=== PATIENT | female | born 1950 | race Caucasian/White ===

== ENCOUNTER 2023-11-06 21:06 | Inpatient (IN) ==
[2023-11-06 23:02] LABS: Hematocrit 23.9 % (35-45); Hemoglobin 7.5 g/dL (11.5-14.3); Mean Corpuscular Hemoglobin 27.4 pg (27-33); Mean Corpuscular Hgb Conc 31.3 g/dL (31-36); Mean Corpuscular Volume 87.6 fL (80-97); Mean Platelet Volume 6.4 fL (7.5-11.2); Platelet Count 393 10^3/uL (150-450); Red Blood Count 2.73 10^6/uL (3.63-4.92); Red Cell Distribution Width 18.8 % (12-17); White Blood Count 29.1 10^3/uL (3.8-11.8)
[2023-11-06] MEDS: NS 0.45% 1000 ml BAG 1,000 ML IV ONE (23:21)
[2023-11-06 23:37] LABS: Albumin 2.3 g/dL (3.2-5.2); Calcium 9.1 mg/dL (8.6-10.3); Creatinine, Serum 3.48 mg/dL (0.51-0.95); Globulin 2.2 g/dL (2-4); Potassium 4.1 mmol/L (3.5-5.0); Total Bilirubin 0.4 mg/dL (0.2-1.0); Total Protein 4.5 g/dL (6.4-8.9); eGFR CKD-EPI 13.4 (>60)
[2023-11-06] MEDS: NS 0.9% 1000 ml BAG 1,000 ML IV SCH (23:47)
[2023-11-07] MEDS ORDERED: Albuterol/Ipratropium NEB.SOL (2.5/0.5 MG) 3 ML NEB.SOLN INH PRN (00:05)
[2023-11-07] MEDS ORDERED: Albuterol 2.5mg/3 ml (0.083%) NEB.SOLN INH PRN (00:05)
[2023-11-07] MEDS ORDERED: Vancomycin 1,000 MG in NS 0.9% 250 ml 250 ML IVPB ONE (00:14)
[2023-11-07 00:38] LABS: ABS Lymphocytes 0.7 10^3/uL (1.0-4.8); ABS Monocytes 0.8 10^3/uL (0.0-0.9); ABS Neutrophils 27.5 10^3/uL (1.5-7.6); ABS Nucleated RBC 0.01 10^3/ul; Anisocytosis 1+; Burr Cells 1+; Eosinophil % 0.1 %; Lymphocyte % 2.4 %; Microcytosis 1+; Polychromasia 1+
[2023-11-07] MEDS ORDERED: Vancomycin per Pharmacy 1 EA NOTE FOLLOW UP SCH (01:00)
[2023-11-07] MEDS: cefTRIAXone 1 gm/50 mL D5W 1 GM/50 ML BAG IV SCH (01:41)
[2023-11-07] MEDS: Hydrocortisone INJ 100 MG/2ML 2 ML VIAL IV SCH (01:59)
[2023-11-07] MEDS: Vancomycin 2,000 MG in NS 0.9% 500 ml BAG 500 ML IVPB ONE (02:04)
[2023-11-07 05:46] LABS: Hematocrit 21.9 % (35-45); Hemoglobin 6.7 g/dL (11.5-14.3); Mean Corpuscular Hemoglobin 26.8 pg (27-33); Mean Corpuscular Hgb Conc 30.6 g/dL (31-36); Mean Corpuscular Volume 87.6 fL (80-97); Mean Platelet Volume 6.4 fL (7.5-11.2); Platelet Count 369 10^3/uL (150-450); White Blood Count 22.8 10^3/uL (3.8-11.8)
[2023-11-07 06:17] LABS: Calcium 8.5 mg/dL (8.6-10.3); Creatinine, Serum 3.36 mg/dL (0.51-0.95); Potassium 4.1 mmol/L (3.5-5.0)
[2023-11-07 06:32] LABS: ABS Lymphocytes 0.4 10^3/uL (1.0-4.8); ABS Monocytes 0.6 10^3/uL (0.0-0.9); ABS Neutrophils 21.7 10^3/uL (1.5-7.6); Lymphocyte % 1.9 %
[2023-11-07] MEDS ORDERED: Mometasone/Formoter 200/5 MDI INH SCH (07:00)
[2023-11-07] MEDS ORDERED: Isosorbide Mononit ER 30mg TAB PO SCH (09:00)
[2023-11-07] MEDS: NS 0.9% 1000 ml BAG 1,000 ML IV SCH (09:04)
[2023-11-07] MEDS: Senna TAB 8.6 mg TAB PO PRN (09:04)
[2023-11-07] MEDS: Heparin 5000 UNITS/ML 1 mL VIAL SUBCUT SCH (09:04)
[2023-11-07] MEDS ORDERED: Sulfur Hexaflouride MICROSPHR 25 MG VIAL ONE (09:20)
[2023-11-07] MEDS: Sulfur Hexaflouride MICROSPHR 25 MG VIAL IV ONE (09:24)
[2023-11-07] MEDS: Albuterol/Ipratropium NEB.SOL (2.5/0.5 MG) 3 ML NEB.SOLN INH SCH (09:26)
[2023-11-07] MEDS: Ondansetron 4 mg VIAL 2 MG/ML 2 ml VIAL IV PRN (20:58)
[2023-11-07] MEDS: Linezolid 600 MG IVPREMIX(*) 600 MG/300 ML BAG IVPB SCH (21:01)
[2023-11-07] MEDS: Fluticasone NASAL SPRAY 50MCG 16 gm SPRAY BTL BOTH NARES SCH (21:16)
[2023-11-07] MEDS: Furosemide 40 mg/4 ml IV VIAL IV SLOW PU ONE (22:32)
[2023-11-08] MEDS: Al Hydrox/Mg Hydrox/Simet LIQ 30 ML UDC PO PRN (00:11)
[2023-11-08 04:02] LABS: Hematocrit 25.2 % (35-45); Hemoglobin 7.8 g/dL (11.5-14.3); Mean Corpuscular Hemoglobin 26.8 pg (27-33); Mean Corpuscular Hgb Conc 31.1 g/dL (31-36); Mean Corpuscular Volume 86.4 fL (80-97); Mean Platelet Volume 6.4 fL (7.5-11.2); Platelet Count 429 10^3/uL (150-450); Red Blood Count 2.92 10^6/uL (3.63-4.92); Red Cell Distribution Width 18.4 % (12-17); White Blood Count 18.4 10^3/uL (3.8-11.8)
[2023-11-08 04:55] LABS: Anion Gap 11 mmol/L (2-16); Blood Urea Nitrogen 41 mg/dL (6-24); CO2 Carbon Dioxide 25 mmol/L (22-32); Calcium 9.2 mg/dL (8.6-10.3); Chloride 106 mmol/L (101-111); Creatinine, Serum 2.55 mg/dL (0.51-0.95); Glucose 108 mg/dL (70-100); Magnesium 2.3 mg/dL (1.9-2.7); Potassium 3.7 mmol/L (3.5-5.0); Sodium 142 mmol/L (135-145); eGFR CKD-EPI 19.5 (>60)
[2023-11-08] MEDS: ACLIDINIUM MDI INH SCH (06:10)
[2023-11-08 07:04] LABS: ABS Basophils 0.2 10^3/uL (0.0-0.1); ABS Lymphocytes 0.5 10^3/uL (1.0-4.8); ABS Monocytes 0.6 10^3/uL (0.0-0.9); ABS Neutrophils 17.1 10^3/uL (1.5-7.6); ABS Nucleated RBC 0.04 10^3/ul; Anisocytosis 1+; Eosinophil % 0.1 %; Lymphocyte % 2.6 %; Nucleated Red Blood Cells % 0.2 %/100WBC (0.0-0.8)
[2023-11-08] MEDS: ROFLUMILAST 500 MCG PO SCH (08:40)
[2023-11-08] MEDS: Polyethylene Glycol 3350 17 GM PACKET PO PRN (08:41)
[2023-11-08] MEDS: Vancomycin Random Level NOTE FOLLOW UP ONE (08:42)
[2023-11-08] MEDS: Albuterol 2.5mg/3 ml (0.083%) NEB.SOLN INH SCH ×2 (09:29→12:50)
[2023-11-08] MEDS ORDERED: Vancomycin Random Level NOTE FOLLOW UP ONE (11:30)
[2023-11-08] MEDS: PTO:Fluticasone/Vilanterol MDI(NF) 200/25 MDI INH SCH (12:24)
[2023-11-08] MEDS: Vancomycin 1,750 MG in NS 0.9% 500 ml BAG 500 ML IVPB ONE (12:30)
[2023-11-08] MEDS: Levalbuterol 1.25MG/0.5ML NEB.SOL INH SCH (12:30)
[2023-11-08] MEDS: Levalbuterol 1.25MG/0.5ML NEB.SOL ONE (12:52)
[2023-11-08] MEDS: Pantoprazole VIAL 40 MG VIAL IV SCH (16:55)
[2023-11-08 17:10] LABS: Hematocrit 26.3 % (35-45); Hemoglobin 8.3 g/dL (11.5-14.3); Mean Corpuscular Hemoglobin 27.1 pg (27-33); Mean Corpuscular Hgb Conc 31.4 g/dL (31-36); Mean Corpuscular Volume 86.2 fL (80-97); Mean Platelet Volume 6.4 fL (7.5-11.2); Platelet Count 438 10^3/uL (150-450); Red Blood Count 3.05 10^6/uL (3.63-4.92); Red Cell Distribution Width 18.7 % (12-17); White Blood Count 15.4 10^3/uL (3.8-11.8)
[2023-11-08] MEDS: Acetaminophen IV 1 GM/100ML 1,000 MG/100 ML BAG IV PRN (17:38)
[2023-11-08] MEDS: Lactated Ringers 1000 ml BAG 1,000 ML IV SCH (17:39)
[2023-11-08 18:12] LABS: ABS Lymphocytes 0.5 10^3/uL (1.0-4.8); ABS Monocytes 0.7 10^3/uL (0.0-0.9); ABS Neutrophils 14.2 10^3/uL (1.5-7.6); ABS Nucleated RBC 0.02 10^3/ul; Eosinophil % 0.1 %; Nucleated Red Blood Cells % 0.1 %/100WBC (0.0-0.8)
[2023-11-08] MEDS: Lidocaine PATCH 5% PATCH TRANSDERM SCH (18:24)
[2023-11-08 18:38] LABS: Iron < 20 ug/dL (50-212); Transferrin 115 mg/dL (203-362)
[2023-11-08] MEDS: Morphine 2 MG/ML SYRINGE IV ONE ×2 (20:42→23:50)
[2023-11-08] MEDS: Ondansetron 4 mg VIAL 2 MG/ML 2 ml VIAL IV ONE (20:43)
[2023-11-08] MEDS: Metoprolol Tartrate 5 mg VIAL 5 ml VIAL (1 mg/ml) IV ONE ×2 (20:58→21:25)
[2023-11-09 06:13] LABS: Hematocrit 25.8 % (35-45); Hemoglobin 8.3 g/dL (11.5-14.3); Mean Corpuscular Hemoglobin 27.8 pg (27-33); Mean Corpuscular Hgb Conc 32.3 g/dL (31-36); Mean Corpuscular Volume 86.2 fL (80-97); Mean Platelet Volume 6.6 fL (7.5-11.2); Platelet Count 412 10^3/uL (150-450); Red Cell Distribution Width 18.2 % (12-17); White Blood Count 14.1 10^3/uL (3.8-11.8)
[2023-11-09 06:31] LABS: Creatinine, Serum 1.69 mg/dL (0.51-0.95); Magnesium 2.2 mg/dL (1.9-2.7); Potassium 3.6 mmol/L (3.5-5.0); eGFR CKD-EPI 31.9 (>60)
[2023-11-09 07:11] LABS: ABS Eosinophils 0.1 10^3/uL (0.0-0.5); ABS Lymphocytes 0.6 10^3/uL (1.0-4.8); ABS Monocytes 0.7 10^3/uL (0.0-0.9); ABS Neutrophils 12.7 10^3/uL (1.5-7.6); ABS Nucleated RBC 0.02 10^3/ul; Eosinophil % 0.4 %; Lymphocyte % 4.3 %; Nucleated Red Blood Cells % 0.1 %/100WBC (0.0-0.8)
[2023-11-09] MEDS: Glycerin ADULT 2.4 gm SUPP PR ONE (11:14)
[2023-11-09] MEDS: Metoclopramide 5 MG/ML VIAL (10 mg) IV SLOW PU ONE (11:14)
[2023-11-09] MEDS: Metoclopramide 5 MG/ML VIAL (10 mg) IV SLOW PU PRN (17:20)
[2023-11-09] MEDS: Morphine 2 MG/ML SYRINGE IV PRN (19:28)
[2023-11-09] MEDS ORDERED: Levalbuterol 0.63MG/3ML NEB UNIT OF USE INH PRN (21:44)
[2023-11-09 21:49] LABS: Hematocrit 28.9 % (35-45); Hemoglobin 8.8 g/dL (11.5-14.3); Mean Corpuscular Hemoglobin 26.6 pg (27-33); Mean Corpuscular Hgb Conc 30.4 g/dL (31-36); Mean Corpuscular Volume 87.5 fL (80-97); Mean Platelet Volume 6.6 fL (7.5-11.2); Platelet Count 549 10^3/uL (150-450); Red Blood Count 3.31 10^6/uL (3.63-4.92); Red Cell Distribution Width 18.9 % (12-17); White Blood Count 20.4 10^3/uL (3.8-11.8)
[2023-11-09] MEDS: Levalbuterol 1.25MG/0.5ML NEB.SOL ONE (21:52)
[2023-11-09] MEDS: Metoprolol Tartrate 5 mg VIAL 5 ml VIAL (1 mg/ml) IV PRN (22:05)
[2023-11-09 22:12] LABS: PO2 Arterial 125 mmHg (80-100)
[2023-11-09 22:14] LABS: PCO2 Arterial 95 mmHg (35-45)
[2023-11-09 22:20] LABS: ABS Basophils 0.1 10^3/uL (0.0-0.1); ABS Eosinophils 0.1 10^3/uL (0.0-0.5); ABS Lymphocytes 1.8 10^3/uL (1.0-4.8); ABS Monocytes 1.1 10^3/uL (0.0-0.9); ABS Neutrophils 17.4 10^3/uL (1.5-7.6); ABS Nucleated RBC 0.04 10^3/ul; Anisocytosis 1+; Basophilic Stippling 1+; Eosinophil % 0.4 %; Lymphocyte % 8.8 %; Nucleated Red Blood Cells % 0.2 %/100WBC (0.0-0.8); Polychromasia 1+
[2023-11-09 22:39] LABS: Albumin 2.5 g/dL (3.2-5.2); Albumin/Globulin Ratio 0.9 (1-3); Calcium 9.4 mg/dL (8.6-10.3); Creatinine, Serum 1.51 mg/dL (0.51-0.95); Globulin 2.7 g/dL (2-4); Potassium 4.4 mmol/L (3.5-5.0); Total Bilirubin 0.5 mg/dL (0.2-1.0); Total Protein 5.2 g/dL (6.4-8.9); eGFR CKD-EPI 36.5 (>60)
[2023-11-09] MEDS: Propofol 10 mg/ml 100 ML BTL 1,000 MG/100 ML BTL IV SCH (22:44)
[2023-11-09] MEDS: Norepinephrine 4 MG/250mL D5W 4,000 MCG/250 ML BAG IV SCH (23:10)
[2023-11-09] MEDS: Norepinephrine 4 MG/250mL D5W 4,000 MCG/250 ML BAG IV ONE (23:11)
[2023-11-09] MEDS: Lactated Ringers 1000 ml BAG 1,000 ML IV SCH (23:24)
[2023-11-09] MEDS: Bumetanide IV 0.25 MG/ML 4 ml VIAL (1 mg) IV SLOW PU ONE (23:24)
[2023-11-09 23:31] LABS: PCO2 Arterial 41 mmHg (35-45); PO2 Arterial 90 mmHg (80-100)
[2023-11-10] MEDS: methylPREDNISolone SOD SUCC 40 mg/ml 1 ml VIAL IV SCH (02:17)
[2023-11-10] MEDS: Chlorhexidine MOUTHWASH 0.12% 15 ML UDC TOPICAL SCH (02:17)
[2023-11-10] MEDS: Norepinephrine 4 MG/250mL NS 4,000 MCG/250 ML BAG IV SCH (02:40)
[2023-11-10 05:13] LABS: Hematocrit 24.3 % (35-45); Hemoglobin 7.6 g/dL (11.5-14.3); Mean Corpuscular Hgb Conc 31.2 g/dL (31-36); Mean Corpuscular Volume 86.6 fL (80-97); Mean Platelet Volume 6.5 fL (7.5-11.2); Platelet Count 403 10^3/uL (150-450); Red Blood Count 2.81 10^6/uL (3.63-4.92); Red Cell Distribution Width 18.3 % (12-17); White Blood Count 15.7 10^3/uL (3.8-11.8)
[2023-11-10 05:16] LABS: Urine Appearance Extra Turbid; Urine Bilirubin Negative (Negative); Urine Blood 3+ (Negative); Urine Color Yellow; Urine Glucose Negative (Negative); Urine Ketones Trace (Negative); Urine Nitrite Negative (Negative); Urine Protein 2+ (>=100 mg/dL) (Negative); Urine Specific Gravity 1.022 (1.002-1.030); Urine Urobilinogen Negative (Negative)
[2023-11-10 05:28] LABS: Urine Bacteria Absent /HPF (Absent); Urine Red Blood Cell 3+(>10/hpf) /HPF (0-Trace); Urine Squamous Epithelial Cell Present /HPF (Absent); Urine White Blood Cell 2+(11-20/hpf) /HPF (0-Trace)
[2023-11-10 05:49] LABS: Albumin 2.1 g/dL (3.2-5.2); Calcium 8.9 mg/dL (8.6-10.3); Creatinine, Serum 1.74 mg/dL (0.51-0.95); Globulin 2.2 g/dL (2-4); Magnesium 2.1 mg/dL (1.9-2.7); Potassium 3.8 mmol/L (3.5-5.0); Total Bilirubin 0.6 mg/dL (0.2-1.0); Total Protein 4.3 g/dL (6.4-8.9); eGFR CKD-EPI 30.8 (>60)
[2023-11-10 06:14] LABS: ABS Lymphocytes 0.6 10^3/uL (1.0-4.8); ABS Monocytes 0.6 10^3/uL (0.0-0.9); ABS Neutrophils 14.4 10^3/uL (1.5-7.6); ABS Nucleated RBC 0.05 10^3/ul; Eosinophil % 0.2 %; Nucleated Red Blood Cells % 0.3 %/100WBC (0.0-0.8)
[2023-11-10 06:15] LABS: Anisocytosis 1+; Basophilic Stippling 1+; Polychromasia 1+
[2023-11-10] MEDS: Famotidine IV 10 MG/ML 2 ml VIAL (20 mg) IV SLOW PU SCH (07:58)
[2023-11-10 09:20] LABS: Body Fluid Appearance Cloudy; Body Fluid Color Yellow; Body Fluid Source Peritonial Fluid
[2023-11-10 09:31] LABS: Body Fluid Total Nucleated 1801 /mcL
[2023-11-10 09:36] LABS: PCO2 Arterial 43 mmHg (35-45); PO2 Arterial 82 mmHg (80-100)
[2023-11-10 09:40] LABS: Body Fluid Mono 25 %; Body Fluid NRBC 1; Body Fluid Total Cells Counted 200
[2023-11-10] MEDS: metroNIDAZOLE IV 500 MG/100ML 500 MG/100 ML BAG IVPB SCH (09:40)
[2023-11-10 10:05] LABS: High Sensitivity Troponin 1 Hr 458 pg/mL (<15)
[2023-11-10] MEDS: Cefepime 2 GM in Dextrose 2 GM/50 ML BAG IV SCH (11:09)
[2023-11-10 12:23] LABS: Hematocrit 23.6 % (35-45); Hemoglobin 7.5 g/dL (11.5-14.3)
[2023-11-10] MEDS: fentaNYL 100 mcg/2 ml 50 MCG/ML VIAL IV SLOW PU PRN (12:35)
[2023-11-10 12:50] LABS: TSH Ultra Thyroid Stim Horm 0.97 mcIU/mL (0.34-5.60)
[2023-11-10] MEDS: Albumin Human 25% 25 GM/100 ML BTL IV ONE (12:56)
[2023-11-10] MEDS: Senna TAB 8.6 mg TAB PO SCH (13:01)
[2023-11-10] MEDS: fentaNYL 100 mcg/2 ml 50 MCG/ML VIAL ONE (13:20)
[2023-11-10 15:32] LABS: Body Fluid Source Broncheoalveolar lav
[2023-11-10] MEDS: ROFLUMILAST 500 MCG PO SCH (15:55)
[2023-11-10 17:17] LABS: Body Fluid Other Cells 3; Body Fluid Total Cells Counted 300
[2023-11-10 17:21] LABS: Body Fluid Appearance Cloudy; Body Fluid Color Pink
[2023-11-10] MEDS: Furosemide 40 mg/4 ml IV VIAL IV SLOW PU ONE (17:34)
[2023-11-11 01:40] LABS: Hematocrit 25.5 % (35-45); Hemoglobin 8.2 g/dL (11.5-14.3); Mean Corpuscular Hemoglobin 27.5 pg (27-33); Mean Corpuscular Hgb Conc 32.2 g/dL (31-36); Mean Corpuscular Volume 85.3 fL (80-97); Mean Platelet Volume 6.4 fL (7.5-11.2); Platelet Count 364 10^3/uL (150-450); Red Cell Distribution Width 18.2 % (12-17); White Blood Count 17.2 10^3/uL (3.8-11.8)
[2023-11-11 02:07] LABS: ABS Lymphocytes 0.8 10^3/uL (1.0-4.8); ABS Monocytes 0.9 10^3/uL (0.0-0.9); ABS Neutrophils 15.4 10^3/uL (1.5-7.6); ABS Nucleated RBC 0.02 10^3/ul; Anisocytosis 1+; Lymphocyte % 4.6 %; Nucleated Red Blood Cells % 0.1 %/100WBC (0.0-0.8); Polychromasia 1+
[2023-11-11 04:15] LABS: Hematocrit 25.9 % (35-45); Hemoglobin 8.4 g/dL (11.5-14.3); Mean Corpuscular Hemoglobin 27.4 pg (27-33); Mean Corpuscular Hgb Conc 32.3 g/dL (31-36); Mean Corpuscular Volume 84.9 fL (80-97); Mean Platelet Volume 6.4 fL (7.5-11.2); Platelet Count 362 10^3/uL (150-450); Red Blood Count 3.05 10^6/uL (3.63-4.92); Red Cell Distribution Width 18.5 % (12-17); White Blood Count 17.5 10^3/uL (3.8-11.8)
[2023-11-11 04:20] LABS: ABS Lymphocytes 0.7 10^3/uL (1.0-4.8); ABS Monocytes 0.8 10^3/uL (0.0-0.9); ABS Neutrophils 16.1 10^3/uL (1.5-7.6); ABS Nucleated RBC 0.03 10^3/ul; Lymphocyte % 3.9 %; Nucleated Red Blood Cells % 0.2 %/100WBC (0.0-0.8)
[2023-11-11 04:57] LABS: Calcium 8.8 mg/dL (8.6-10.3); Creatinine, Serum 2.18 mg/dL (0.51-0.95); Potassium 3.6 mmol/L (3.5-5.0); eGFR CKD-EPI 23.5 (>60)
[2023-11-11 06:27] VITALS: BP 83/39
[2023-11-11 07:58] LABS: Albumin 2.4 g/dL (3.2-5.2); Globulin 2.3 g/dL (2-4); Total Bilirubin 0.6 mg/dL (0.2-1.0); Total Protein 4.7 g/dL (6.4-8.9)
[2023-11-11 08:47] LABS: Urine Potassium Concentration 13.5 mmol/L
[2023-11-11] MEDS: methylPREDNISolone SOD SUCC 40 mg/ml 1 ml VIAL IV SCH (10:14)
[2023-11-11] MEDS ORDERED: fentaNYL 100 mcg/2 ml 50 MCG/ML VIAL ONE (10:22)
[2023-11-11] MEDS ORDERED: Midazolam 10 mg/10 ml VIAL 1 mg/ml 10 ml VIAL (10 mg) ONE (10:22)
[2023-11-11] MEDS: fentaNYL 100 mcg/2 ml 50 MCG/ML VIAL IV SLOW PU ONE (11:47)
[2023-11-11] MEDS: Metoclopramide 5 MG/ML VIAL (10 mg) IV SLOW PU SCH (12:08)
[2023-11-11] MEDS: fentaNYL 100 mcg/2 ml 50 MCG/ML VIAL ONE (15:24)
[2023-11-12 04:28] LABS: Hematocrit 29.1 % (35-45); Hemoglobin 9.1 g/dL (11.5-14.3); Mean Corpuscular Hemoglobin 26.5 pg (27-33); Mean Corpuscular Hgb Conc 31.1 g/dL (31-36); Mean Corpuscular Volume 85.3 fL (80-97); Mean Platelet Volume 6.5 fL (7.5-11.2); Platelet Count 433 10^3/uL (150-450); Red Blood Count 3.42 10^6/uL (3.63-4.92); Red Cell Distribution Width 18.9 % (12-17); White Blood Count 19.1 10^3/uL (3.8-11.8)
[2023-11-12 05:19] LABS: Albumin 2.4 g/dL (3.2-5.2); Calcium 8.8 mg/dL (8.6-10.3); Creatinine, Serum 2.03 mg/dL (0.51-0.95); Globulin 2.3 g/dL (2-4); Potassium 3.3 mmol/L (3.5-5.0); Total Bilirubin 0.5 mg/dL (0.2-1.0); Total Protein 4.7 g/dL (6.4-8.9); eGFR CKD-EPI 25.6 (>60)
[2023-11-12 05:39] LABS: ABS Lymphocytes 1.2 10^3/uL (1.0-4.8); ABS Monocytes 0.7 10^3/uL (0.0-0.9); ABS Neutrophils 17.2 10^3/uL (1.5-7.6); ABS Nucleated RBC 0.03 10^3/ul; Eosinophil % 0.1 %; Lymphocyte % 6.3 %; Nucleated Red Blood Cells % 0.2 %/100WBC (0.0-0.8)
[2023-11-12 05:40] LABS: Anisocytosis 1+; Polychromasia 1+
[2023-11-12] MEDS: KCL 10 MEQ/50 ML IVPREMIX 10 MEQ/50 ML BAG IV ONE (05:49)
[2023-11-12] MEDS: KCL 20 MEQ/100 ML IVPREMIX 20 MEQ/100 ML BAG IV SCH (07:21)
[2023-11-12] MEDS: Furosemide 40 mg/4 ml IV VIAL IV SLOW PU ONE (07:52)
[2023-11-12 08:08] LABS: PCO2 Arterial 49 mmHg (35-45); PO2 Arterial 75 mmHg (80-100)
[2023-11-12] MEDS: Albumin Human 25% 25 GM/100 ML BTL IV ONE (08:27)
[2023-11-12] MEDS: Heparin 5000 UNITS/ML 1 mL VIAL SUBCUT SCH (08:31)
[2023-11-12] MEDS: Dexmedetomidine 1,000 MCG in NS 0.9% 250 ml 240 ML IV SCH (12:13)
[2023-11-12] MEDS ORDERED: Levalbuterol 1.25MG/0.5ML NEB.SOL INH PRN (13:17)
[2023-11-12 14:33] LABS: Lactate Dehydrogenase, BF 701 U/L
[2023-11-12 16:20] LABS: Albumin, BF 1.9 g/dL; Fluid Type, Albumin PERITONEAL FLUID; Fluid Type, Protein, Total PERITONEAL FLUID; Glucose, BF 129 mg/dL; Total Protein, BF 2.8 g/dL
[2023-11-13] MEDS ORDERED: Pantoprazole VIAL 40 MG VIAL IV SCH (06:00)
[2023-11-13] MEDS: Morphine 10 MG/ML VIAL (1 mL) 100 MG in NS 0.9% 100 ml BAG 90 ML IV SCH (10:43)
[2023-11-13] MEDS: LORazepam 2 mg VIAL 1 ml ONE ×2 (10:54→11:25)
[2023-11-13] MEDS: Glycopyrrolate IV 0.2 MG/ML 1 ML VIAL IV SLOW PU ONE (11:02)
== END 2023-11-13 15:41 | disposition expired | DRG 853 ==
LOC: ED 21:06 → EDHOLD 23:59 → SUATTDRO 23:59 → ICU 11-07 01:22 → MED 11-07 16:30 → ICU 11-09 22:44
PROVIDERS: ADMIT Internal Medicine; ATTEND Surgery Surgical Critical Care